=== PATIENT | male | born 1965 | race Caucasian/White ===

== ENCOUNTER 2016-12-08 22:31 | Emergency (ER) | payer SELFPAY ==
[~2016-12-08 22:31] MED LIST: ACET325S8 PO; CEPH500C3 PO; antibiotics
[2016-12-08 23:18] VITALS: BP 134/97; PULSE 93; RESP 16; TEMP 98.1; O2SAT 96
--- NOTE | 2016-12-08 23:29 | PD ---
HPI Chief Complaint: Alcohol/Drug Intoxication Time Seen by Provider: 23:20 Travel History International Travel<30 days: No Contact w/Intl Traveler<30days: No History of Present Illness HPI Patient is a 51-year-old homeless alcoholic male who presents the emergency department for public intoxication. Per police patient was reportedly drinking heavily today and was found in public intoxicated and staggering with unsteady gait. He was brought here. Patient admits to drinking beer heavily. He denies any complaints. Or counseling for his alcoholism. 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) Ulcer: Yes Past Surgical History Abdominal Surgery: Yes (ULCER) Other Surgery: Yes Social History Alcohol Use: Yes (12 pack and 2 bottles of mouthwash.) Tobacco Use: Yes (cheap little cigars.) Substance Use: No Allergies-Medications (Allergen,Severity, Reaction): Coded Allergies: No Known Allergies (Verified , 05/06/16) Reported Meds & Prescriptions Reported Meds & Active Scripts Active Acetaminophen 325 Mg Tab 650 Mg PO Q6HR PRN Keflex (Cephalexin Monohydrate) 500 Mg Cap 500 Mg PO Q8 Reported [antibiotics] Review of Systems ROS Limitations: Intoxication Except as stated in HPI: all other systems reviewed are Neg Physical Exam Exam Limitations: Intoxication Narrative GENERAL: Disheveled elderly male appearing older than stated age in no acute distress SKIN: Focused skin assessment warm/dry. HEAD: Atraumatic. Normocephalic. EYES: Pupils equal and round. No scleral icterus. No injection or drainage. ENT: No nasal bleeding or discharge. Mucous membranes pink and moist. NECK: Supple CARDIOVASCULAR: Regular rate and rhythm. RESPIRATORY: No accessory muscle use. GASTROINTESTINAL: Abdomen soft, non-tender, nondistended. MUSCULOSKELETAL: No obvious deformities. No edema. NEUROLOGICAL: Awake and alert. Answers questions and follows commands appropriately. Strength intact. Able to ambulate independently. Speech slurred. PSYCHIATRIC: insight and judgment poor Data Data Last Documented VS Vital Signs Date Time Temp Pulse Resp B/P Pulse Ox O2 Delivery O2 Flow Rate FiO2 12/08/16 23:18 98.1 93 16 134/97 96 MDM Medical Decision Making Medical Screen Exam Complete: Yes Emergency Medical Condition: Yes Medical Record Reviewed: Yes Differential Diagnosis 51-year-old homeless alcoholic male here for public intoxication. Patient brought here primarily because of unsteady gait but has been able to ambulate independently in her emergency department without any difficulty. Patient denies any complaints and no further workup, treatment is necessary at this time. Narrative Course Discharged home. Diagnosis Primary Impression: Alcohol intoxication Qualified Code: F10.120 - Alcohol intoxication, uncomplicated Additional Impression: Homelessness Referrals: [facility] as needed Additional Instructions: Cut back on your drinking. Med/Other Pt SpecificInfo: No Change to Meds Disposition: 01 DISCHARGE HOME Condition: Stable Mary Kennedy MD Dec 08, 2016 23:28
== END 2016-12-09 06:29 | disposition home or self-care (01) ==
LOC: NEDAMB 22:31 → NEPD 12-09 06:29
DX: F10.120 Alcohol abuse with intoxication, uncomplicated (principal); I50.9 Heart failure, unspecified; B19.20 Unspecified viral hepatitis C without hepatic coma; Z86.73 Personal history of transient ischemic attack (TIA), and cerebral infarction without residual deficits; Z59.0 Homelessness
CPT/HCPCS: 99284

== ENCOUNTER 2016-12-16 04:47 | Emergency (ER) | payer SELFPAY ==
[~2016-12-16] VITALS: Ht 172.7 cm; Wt 75.0 kg
[2016-12-16 04:50] VITALS: BP 126/74; TEMP 98; O2SAT 96
[2016-12-16] MEDS ORDERED: KETOROLAC TROMETHAMINE 60 MG/2 ML (IM) VIAL IM ONE (05:15)
[2016-12-16] MEDS ORDERED: DICL75TA PO (05:18)
--- NOTE | 2016-12-16 05:21 | PD ---
HPI Chief Complaint: Back/ Neck Pain or Injury Time Seen by Provider: 05:19 Travel History International Travel<30 days: No Contact w/Intl Traveler<30days: No Traveled to known affect area: No History of Present Illness HPI 51-year-old male presents emergency Department with complaints of lower back pain as well as arthritis. He states that he has had arthritis and lower back pain for quite some time. It has gotten worse over the past week. He denies any direct trauma. No recent illness. He admits to alcohol. 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) Ulcer: Yes Past Surgical History Abdominal Surgery: Yes (ULCER) Other Surgery: Yes Social History Alcohol Use: No Tobacco Use: No Substance Use: No Allergies-Medications (Allergen,Severity, Reaction): Coded Allergies: No Known Allergies (Verified , 12/16/16) Reported Meds & Prescriptions Reported Meds & Active Scripts Active Acetaminophen 325 Mg Tab 650 Mg PO Q6HR PRN Keflex (Cephalexin Monohydrate) 500 Mg Cap 500 Mg PO Q8 Reported [antibiotics] Review of Systems Except as stated in HPI: all other systems reviewed are Neg Physical Exam Narrative GENERAL: Well-developed, well-nourished in no acute distress. Nontoxic appearing. HEAD: Normocephalic, atraumatic. EYES: Pupils equal round and reactive. Extraocular motions intact. No scleral icterus. No injection or drainage. ENT: TMs clear without erythema. The external auditory canals clear. Nose: clear . Posterior pharynx is pink and moist. No tonsillar edema or exudate. Uvula midline. Airway patent. NECK: Trachea midline.Supple, nontender, moves head freely. No central bony tenderness or spasm. CARDIOVASCULAR: Regular rate and rhythm without murmurs, gallops, or rubs. RESPIRATORY: Clear to auscultation. Breath sounds equal bilaterally. No wheezes , rales, or rhonchi. GASTROINTESTINAL: Abdomen soft, non-tender, nondistended. No hepato-splenomegaly , or palpable masses. No guarding. EXTREMITIES: No clubbing, cyanosis, or edema. Positive arthritic changes in the hands BACK: Lower lumbar tenderness without deformity or crepitance. No flank tenderness. Sits up at 90. No saddle anesthesia. Data Data Last Documented VS Vital Signs Date Time Temp Pulse Resp B/P Pulse Ox O2 Delivery O2 Flow Rate FiO2 12/16/16 04:50 98.0 98 16 126/74 96 Orders Ketorolac Inj (Toradol Inj) (12/16/16 05:15) MDM Medical Decision Making Medical Screen Exam Complete: Yes Emergency Medical Condition: Yes Medical Record Reviewed: Yes Differential Diagnosis MDM: High Differential diagnoses: Fracture, sprain, strain, HNP, nerve or vascular injury , epidural abscess, pilonidal cyst Narrative Course Patient is given Toradol 60 mg IM. This is acute exacerbation of chronic back pain, osteoarthritis Diagnosis Primary Impression: Acute exacerbation of chronic low back pain Additional Impression: Osteoarthritis Qualified Code: M19.91 - Primary osteoarthritis, unspecified site Patient Instructions: General Instructions Additional Instructions: Rest. Ice for the next 3 days followed by jose Lesliearen. Follow-up with a primary care doctor in one week. Return to the ER for emergencies. Med/Other Pt SpecificInfo: Prescription(s) given Scripts Diclofenac Sodium DR 75 Mg Tabdr75 Mg PO BID #20 TAB Prov:Tiffany Newby MD 12/16/16 Disposition: 01 DISCHARGE HOME Condition: Stable Migue Barlow Dec 16, 2016 05:21
== END 2016-12-16 06:17 | disposition home or self-care (01) ==
LOC: NEPD 04:47
DX: M54.5 Low back pain (principal); G89.29 Other chronic pain; M19.90 Unspecified osteoarthritis, unspecified site; I50.9 Heart failure, unspecified
CPT/HCPCS: 96372; 99283; J1885

== ENCOUNTER 2016-12-16 15:05 | Emergency (ER) | payer SELFPAY ==
[~2016-12-16] VITALS: Ht 170.2 cm; Wt 68.0 kg
[~2016-12-16 15:05] MED LIST changes: +DICL75TA PO
[2016-12-16 15:15] VITALS: BP 110/70; PULSE 74; RESP 12; TEMP 98.2; O2SAT 98
--- NOTE | 2016-12-16 15:22 | PD ---
HPI . intoxication Chief Complaint: Back/ Neck Pain or Injury Time Seen by Provider: 15:22 Travel History International Travel<30 days: No Contact w/Intl Traveler<30days: No Traveled to known affect area: No History of Present Illness HPI 51-year-old male with history of alcoholism and chronic back pain here brought in by his cousin. Has reports that patient has been drinking Listerine and mouthwash to get intoxicated. He brought him into the emergency department because he says he is unable to walk and has been falling over. He does have a history of chronic back pain and is also wanting treatment for his back pain. Of note he was seen early this morning and discharged home. He tells me that he was unable to follow-up with his orthopedic doctor today and he is here for evaluation. He denies any bowel or bladder dysfunction. He has no saddle anesthesia. 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) Ulcer: Yes Past Surgical History Abdominal Surgery: Yes (ULCER) Other Surgery: Yes Social History Alcohol Use: No Tobacco Use: No Substance Use: No Allergies-Medications (Allergen,Severity, Reaction): Coded Allergies: No Known Allergies (Verified , 12/16/16) Reported Meds & Prescriptions Reported Meds & Active Scripts Active Diclofenac Sodium DR (Diclofenac Sodium) 75 Mg Tabdr 75 Mg PO BID Tylenol (Acetaminophen) 325 Mg Tab 650 Mg PO Q6HR PRN Keflex (Cephalexin Monohydrate) 500 Mg Cap 500 Mg PO Q8 Reported [antibiotics] Review of Systems General / Constitutional: No: Fever Eyes: No: Visual changes HENT: No: Headaches Cardiovascular: No: Chest Pain or Discomfort Respiratory: No: Shortness of Breath Gastrointestinal: No: Abdominal Pain Genitourinary: No: Dysuria Musculoskeletal: Positive: Pain (back pain) Skin: No Rash Neurologic: Positive: Other (intoxication ), No: Weakness Psychiatric: No: Depression Endocrine: No: Polydipsia Hematologic/Lymphatic: No: Easy Bruising Physical Exam Narrative GENERAL: Disheveled, belligerent, SKIN: Warm and dry. No visible rashes or bruising. There is a healing lesion on the right anterior leg HEAD: Normocephalic and atraumatic. EYES: No scleral icterus. No injection or drainage. ENT: No nasal drainage noted. Mucous membranes pink. Airway patent. NECK: Supple, trachea midline. No JVD. CARDIOVASCULAR: Regular rate and rhythm without murmurs, gallops, or rubs. RESPIRATORY: Breath sounds equal bilaterally. No accessory muscle use. No rhonchi or rales. GASTROINTESTINAL: Abdomen soft, non-tender, nondistended. EXTREMITIES: No cyanosis or edema. BACK: patient yelling at me now allowing examination PSYCH: intoxicated Data Data Last Documented VS Vital Signs Date Time Temp Pulse Resp B/P Pulse Ox O2 Delivery O2 Flow Rate FiO2 12/16/16 15:15 98.2 74 12 110/70 98 MDM Medical Decision Making Medical Screen Exam Complete: Yes Emergency Medical Condition: Yes Medical Record Reviewed: Yes Differential Diagnosis alcohol intoxication, back pain, Narrative Course 51-year-old male with history of alcoholism and chronic back pain here brought in by his cousin. Has reports that patient has been drinking Listerine and mouthwash to get intoxicated. He brought him into the emergency department because he says he is unable to walk and has been falling over. He does have a history of chronic back pain and is also wanting treatment for his back pain. Of note he was seen early this morning and discharged home. He tells me that he was unable to follow-up with his orthopedic doctor today and he is here for evaluation. He denies any bowel or bladder dysfunction. He has no saddle anesthesia. Patient seen and examined. He is intoxicated. He needs a medical bed. The next provider will determine his disposition. [id number]: radiologic technologist mammogram came over to notify me that patient is leaving AMA. Diagnosis Primary Impression: Left against medical advice Disposition: 07 AGAINST MEDICAL ADVICE Candy Sky Dec 16, 2016 15:22
== END 2016-12-16 15:34 | disposition left against medical advice (07) ==
LOC: NEPK 15:05
DX: M54.9 Dorsalgia, unspecified (principal); Z53.21 Procedure and treatment not carried out due to patient leaving prior to being seen by health care provider; F10.129 Alcohol abuse with intoxication, unspecified; G89.29 Other chronic pain
CPT/HCPCS: 99282

== ENCOUNTER 2017-03-26 16:32 | Emergency (ER) | payer SELFPAY ==
[~2017-03-26] VITALS: Ht 160 cm; Wt 76.0 kg
[2017-03-26 16:38] VITALS: BP 134/91; PULSE 89; RESP 18; TEMP 97.9; O2SAT 97
--- NOTE | 2017-03-26 16:51 | PD ---
HPI Chief Complaint: alcohol withdrawal Time Seen by Provider: 16:51 Travel History International Travel<30 days: No Contact w/Intl Traveler<30days: No History of Present Illness HPI Patient is a 52-year-old male who is an alcoholic, was sent to the emergency room by [facility] for medical clearance for possible alcohol withdrawal. Reports that patient was admitted to their facility 3 days ago for alcoholism and for detox. Reports concerns that he may be withdrawing from etoh. Reports that he is not acting like his normal self. Denies si/hi. 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) Ulcer: Yes Past Surgical History Abdominal Surgery: Yes (ULCER) Other Surgery: Yes Social History Alcohol Use: No Tobacco Use: No Substance Use: No Allergies-Medications (Allergen,Severity, Reaction): Coded Allergies: No Known Allergies (Unverified , 03/26/17) Reported Meds & Prescriptions Reported Meds & Active Scripts Active No Active Prescriptions or Reported Medications Review of Systems General / Constitutional: No: Fever Eyes: No: Visual changes HENT: No: Headaches Cardiovascular: No: Chest Pain or Discomfort Respiratory: No: Shortness of Breath Gastrointestinal: No: Abdominal Pain Genitourinary: No: Dysuria Musculoskeletal: No: Pain Skin: No Rash Neurologic: No: Weakness Psychiatric: No: Depression Endocrine: No: Polydipsia Hematologic/Lymphatic: No: Easy Bruising Physical Exam Narrative GENERAL: nad SKIN: Focused skin assessment warm/dry. HEAD: Atraumatic. Normocephalic. EYES: Pupils equal and round. No scleral icterus. No injection or drainage. ENT: No nasal bleeding or discharge. Mucous membranes pink and moist. NECK: Trachea midline. No JVD. CARDIOVASCULAR: Regular rate and rhythm. No murmur appreciated. RESPIRATORY: No accessory muscle use. Clear to auscultation. Breath sounds equal bilaterally. GASTROINTESTINAL: Abdomen soft, non-tender, nondistended. Hepatic and splenic margins not palpable. MUSCULOSKELETAL: No obvious deformities. No clubbing. No cyanosis. No edema. NEUROLOGICAL: Awake and alert. No obvious cranial nerve deficits. Motor grossly within normal limits. Normal speech. PSYCHIATRIC: Flat affect Data Data Last Documented VS Vital Signs Date Time Temp Pulse Resp B/P Pulse Ox O2 Delivery O2 Flow Rate FiO2 03/26/17 16:49 88 17 03/26/17 16:38 97.9 134/91 97 Orders Complete Blood Count With Diff (03/26/17 16:45) Comprehensive Metabolic Panel (03/26/17 16:45) Iv Access Insert/Monitor (03/26/17 16:45) Ecg Monitoring (03/26/17 16:45) Drug Screen, Random Urine (03/26/17 16:45) Alcohol (Ethanol) (03/26/17 16:45) MDM Medical Decision Making Medical Screen Exam Complete: Yes Emergency Medical Condition: Yes Differential Diagnosis Differential includes alcohol withdrawl, electrolyte abnormality Narrative Course 52 year old male who is an alcoholic presents to ER from [facility] for possible alcohol withdrawal. Patient is an alcoholic and was admitted to their facilities 3 days ago, reports concerns for withdrawl symptoms. Requests medical clearance, once medically cleared, once he is medically cleared, he is to return back to [facility] Patient signed out to oncoming physician at change of shift Scripts No Active Prescriptions or Reported Meds Karin Wong DO Mar 26, 2017 16:51
[2017-03-26 17:48] LABS: AMPHETAMINE, URINE NEG (NEG); BARBITURATES, URINE NEG (NEG); COCAINE, URINE NEG (NEG)
[2017-03-26 17:56] LABS: BASOPHIL # 0.1 TH/MM3 (0-0.2); BASOPHIL % 0.5 % (0.0-2.0); EOSINOPHIL # 0.1 TH/MM3 (0-0.4); EOSINOPHIL % 0.8 % (0.0-4.0); HEMATOCRIT 38.3 % (39.0-51.0); HEMO FLAGS DIFF FINAL; LYMPH % 13.4 % (9.0-44.0); LYMPHOCYTE # 1.6 TH/MM3 (1.0-4.8); MEAN CELL VOLUME 86.3 FL (80.0-100.0); MEAN CORPUSCULAR HEMOGLOBIN 28.6 PG (27.0-34.0); MEAN CORPUSCULAR HGB CONC 33.2 % (32.0-36.0); NEUT % 67.3 % (16.0-70.0); PLATELET COUNT 116 TH/MM3 (150-450); RED BLOOD COUNT 4.44 MIL/MM3 (4.50-5.90); RED CELL DISTRIBUTION WIDTH 18.6 % (11.6-17.2); WHITE BLOOD COUNT 11.9 TH/MM3 (4.0-11.0)
[2017-03-26 17:57] LABS: ALT (GPT) 120 U/L (12-78)
[2017-03-26 17:59] LABS: ALKALINE PHOSPHATASE 73 U/L (45-117); TOTAL BILIRUBIN ADULT 1.1 MG/DL (0.2-1.0)
[2017-03-26 18:01] LABS: ANION GAP 7 MEQ/L (5-15); AST (GOT) 136 U/L (15-37); BICARBONATE 23.3 MEQ/L (21.0-32.0); BLOOD UREA NITROGEN 15 MG/DL (7-18); CHLORIDE 102 MEQ/L (98-107); GLOMERULAR FILTRATION RATE 135 ML/MIN (>89); SODIUM (NA) 132 MEQ/L (136-145)
[2017-03-26 18:04] LABS: POTASSIUM 5.1 MEQ/L (3.5-5.1)
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
[2017-03-26] MEDS ORDERED: ERYTOIN10 EACH EYE (18:14)
[2017-03-26 19:36] VITALS: BP 139/89; PULSE 98; RESP 18; TEMP 99.6; O2SAT 95
[2017-03-26] MEDS ORDERED: chlordiazePOXIDE 25 MG CAP PO ONE (19:45)
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
== END 2017-03-26 22:48 ==
LOC: NEPD 16:32
DX: F10.239 Alcohol dependence with withdrawal, unspecified (principal); H10.9 Unspecified conjunctivitis; E87.5 Hyperkalemia; I50.9 Heart failure, unspecified; R56.9 Unspecified convulsions; M13.89 Other specified arthritis, multiple sites; F41.9 Anxiety disorder, unspecified; F32.9 Major depressive disorder, single episode, unspecified; Z86.73 Personal history of transient ischemic attack (TIA), and cerebral infarction without residual deficits
CPT/HCPCS: 70450; 80053; 80307; 82140; 85025; 99285

== ENCOUNTER 2017-09-14 17:06 | Emergency (ER) | payer SELFPAY ==
[~2017-09-14 17:06] MED LIST changes: -ACET325S8 PO; -CEPH500C3 PO; -DICL75TA PO; +ERYTOIN10 EACH EYE; -antibiotics
[2017-09-14 17:15] VITALS: BP 129/79; PULSE 102; RESP 18; TEMP 98.7; O2SAT 96
--- NOTE | 2017-09-14 17:21 | PD ---
HPI Chief Complaint: alcohol intoxication Time Seen by Provider: 17:16 Travel History International Travel<30 days: No Contact w/Intl Traveler<30days: No Traveled to known affect area: No History of Present Illness HPI 52-year-old male with history of alcohol dependence, brought in by a balance complaining of bilateral shoulder pain and bilateral leg pain. The patient admits to drinking beer throughout the day today. He states he has been sober for about 5 months, then relapsed 2 days ago and has been drinking alcohol for the last couple of days. He complains of bilateral shoulder and bilateral leg pain stating that he has arthritis. He denies any trauma or recent injuries. He denies illicit drug use. No chest pain or dyspnea. No fevers. He is asking for a strong aspirin for his pain. Chart review shows that the patient has been here in the past with alcohol intoxication several times, the last visit however was March 2017. 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) Ulcer: Yes Past Surgical History Abdominal Surgery: Yes (ULCER) Other Surgery: Yes Social History Alcohol Use: Yes (EVERY DAY) Tobacco Use: Yes (1/2 PACK PER DAY) Substance Use: No (PT DENIES) Allergies-Medications (Allergen,Severity, Reaction): Coded Allergies: No Known Allergies (Verified Adverse Reaction, Unknown, 09/14/17) Reported Meds & Prescriptions Reported Meds & Active Scripts Active Erythromycin Opth Oint 5 Mg/Gm Oint 1 Applic EACH EYE BID Review of Systems Except as stated in HPI: all other systems reviewed are Neg Physical Exam Narrative GENERAL: Well-developed, well-nourished, awake, alert, GCS 15, disheveled, no apparent distress. Appears intoxicated. SKIN: Focused skin assessment warm/dry. HEAD: Atraumatic. Normocephalic. EYES: Pupils equal and round. No scleral icterus. No injection or drainage. ENT: No nasal bleeding or discharge. Mucous membranes pink and moist. NECK: Trachea midline. No JVD. No nuchal rigidity. No midline spinous step- off or tenderness. CARDIOVASCULAR: Regular rate and rhythm. No murmur appreciated. RESPIRATORY: No accessory muscle use. Clear to auscultation. Breath sounds equal bilaterally. GASTROINTESTINAL: Abdomen soft, non-tender, nondistended. MUSCULOSKELETAL: All joints and extremities are without obvious deformity, without warmth, without erythema, without tenderness, with normal range of motion. No edema. NEUROLOGICAL: Awake and alert. No obvious cranial nerve deficits. Motor grossly within normal limits. Normal speech. PSYCHIATRIC: Appropriate mood and affect; insight and judgment normal. MDM Medical Decision Making Medical Screen Exam Complete: Yes Emergency Medical Condition: Yes Differential Diagnosis Alcohol intoxication, chronic pain Narrative Course Vital signs reviewed. The patient is complaining of chronic pain secondary to arthritis. There are no signs of septic arthritis. No deformity. No signs of trauma. Patient appears intoxicated and admits to drinking beer throughout the day today as well as last couple of days. He will be allowed to sleep off his intoxication in the emergency department. Diagnosis Primary Impression: Alcohol intoxication Qualified Codes: F10.920 - Alcohol use, unspecified with intoxication, uncomplicated Additional Impression: Chronic pain Qualified Codes: G89.29 - Other chronic pain Referrals: [facility] 1 day Additional Instructions: Follow-up at [facility] tomorrow for help with detox from alcohol. Follow-up with a primary care physician this week. Return to the emergency department for worsening symptoms or any other concerns. Disposition: 01 DISCHARGE HOME Condition: Stable Phillip Kan MD Sep 14, 2017 17:21
[2017-09-14] MEDS ORDERED: ACETAMINOPHEN 325 MG TAB PO ONE (17:30)
[2017-09-15 00:23] VITALS: BP 119/76; PULSE 115; RESP 18; TEMP 98.1; O2SAT 95
[2017-09-15 04:14] VITALS: BP 138/95; PULSE 94; RESP 18; TEMP 98.6; O2SAT 95
== END 2017-09-15 05:07 | disposition home or self-care (01) ==
LOC: NEPD 17:06
DX: F10.229 Alcohol dependence with intoxication, unspecified (principal); G89.29 Other chronic pain; M19.90 Unspecified osteoarthritis, unspecified site; F17.200 Nicotine dependence, unspecified, uncomplicated
CPT/HCPCS: 99283